=== PATIENT | male | born 1985 | race Caucasian/White ===

== ENCOUNTER 2018-05-22 19:34 | Emergency (ER) | payer BC ==
[2018-05-22 19:58] VITALS: BP 152/80
--- NOTE | 2018-05-22 20:49 | ED Physician Documentation ---
General Adult - HISTORIAN Historian: patient, spouse - HPI Stated Complaint: cough/congestion Chief Complaint: General Adult Additional Information: Cough and sinus congestion for 5-6 days. Worse today with more frequent cough. Has felt hot and cold. Takes Zyrtec daily. Also has taken Tyklenol cough and cold x2. No other modifying factors or associated signs. - ROS CONST: fever (see above) - PAST HX Past History: other (seasonal allergies) Allergies/Adverse Reactions: Allergies Allergy/AdvReac Type Severity Reaction Status Date / Time No Known Allergies Allergy Verified 05/22/18 19:51 Home Medications: Ambulatory Orders Medication Instructions Recorded Azithromycin [Zithromax] 250 mg PO DAILY #4 tablet 05/22/18 predniSONE [Deltasone] 20 mg PO DAILY #6 tablet 05/22/18 - SOCIAL HX Smoking History: non-smoker - FAMILY HX Family History: No - VITAL SIGNS Vital Signs: Vital Signs Temp Pulse Resp BP Pulse Ox 98.8 F 72 22 152/80 97 05/22/18 19:46 05/22/18 19:46 05/22/18 19:46 05/22/18 19:46 05/22/18 19:46 - REVIEWED ASSESSMENTS Nursing Assessment Reviewed: Yes Vitals Reviewed: Yes ED Results Lab/Radiology - Orders Orders: ED Orders Category Date Time Status Azithromycin [Zithromax] Med 05/22/18 20:44 Once 500 mg PO NOW ONE predniSONE [Deltasone] Med 05/22/18 20:44 Once 20 mg PO NOW ONE General Adult Physical Exam - PHYSICAL EXAM GENERAL APPEARANCE: moderate distress (face swollen, appears tired, ill) EENT: eye inspection normal, pharynx normal (with post nasal drip) NECK: normal inspection, supple. No: lymphadenopathy RESPIRATORY: no resp distress, breath sounds normal CVS: reg rate & rhythm, heart sounds normal BACK: normal inspection, no CVA tenderness SKIN: warm/dry, normal color EXTREMITIES: normal range of motion (gait and stance), no evidence of injury NEURO: CN's nml as tested, motor nml, sensation nml, cognition normal Discharge Clincal Impression: Sinusitis Qualifiers: Sinusitis location: unspecified location Chronicity: acute Recurrence: not specified as recurrent Qualified Code(s): J01.90 - Acute sinusitis, unspecified Prescriptions: Azithromycin [Zithromax] 250 mg PO DAILY #4 tablet predniSONE [Deltasone] 20 mg PO DAILY #6 tablet Referrals: Primary Doctor,No [Primary Care Provider] - 2 Days Condition: Fair Disposition: 01 HOME, SELF-CARE Decision to Admit: NO Decision Time: 20:50
[2018-05-22] MEDS: AZITHROMYCIN 250 MG TABLET PO ONE (20:52)
[2018-05-22] MEDS: predniSONE 20 MG TABLET PO ONE (20:52)
== END 2018-05-22 20:57 | disposition home or self-care (01) ==
LOC: ED 19:34
DX: J01.90 Acute sinusitis, unspecified (principal)